=== PATIENT | female | born 1975 | race Caucasian/White ===

== ENCOUNTER → 2019-09-22 15:04 | Outpatient (ROUT) | payer OTHER, SELFPAY ==
[2019-09-22 15:21] LABS: Add Manual Diff / Slide Review NO; Basophils Absolute Auto 0 /uL (0-100); Basophils Percent Auto 0.6 % (0-2); Eosinophils Absolute Auto 100 /uL (0-450); Eosinophils Percent Auto 0.9 % (2-4); Hematocrit 40.8 % (36-46); Hemoglobin 13.6 g/dL (12.0-16.0); Lymphocytes Absolute Auto 1700 /uL (1100-4500); Lymphocytes Percent Auto 29.2 % (25-40); Mean Corpuscular HGB Conc 33.3 % (30-36); Mean Corpuscular Hemoglobin 30.8 PG (26-34); Mean Corpuscular Volume 92.6 fL (80-100); Monocytes Absolute Auto 400 /uL (0-900); Monocytes Percent Auto 7.1 % (3-14); Neutrophils Absolute Auto 3700 /uL (1500-7000); Neutrophils Percent Auto 62.2 % (50-75); Platelet Count 279 X10^3/uL (150-400); Red Cell Distribution Width 13.7 % (11.6-14.8); White Blood Cell Count 5.9 X10^3/uL (4.5-11.0)
[2019-09-22 15:33] LABS: Alanine Aminotransferase 21 IU/L (9-52); Albumin 4.3 g/dL (3.5-5.0); Albumin Globulin Ratio 1.4 (1.0-2.8); Alkaline Phosphatase 80 U/L (38-126); Aspartate Aminotransferase 23 IU/L (15-46); BUN Creatinine Ratio 18.6 (6-22); Bilirubin Total 0.4 mg/dL (0.2-1.3); Blood Urea Nitrogen 13 mg/dL (7-17); Calcium 9.7 mg/dL (8.4-10.2); Carbon Dioxide 25 mmol/L (22-32); Chloride 104 mmol/L (98-107); Cholesterol 186 mg/dL (140-199); Estimated Glomerular Filt Rate > 60.0 mL/min (>60); Glucose 82 mg/dL (70-100); HDL Cholesterol 100 mg/dL (40-60); HEMOLYSIS < 15 (0-50); LDL Cholesterol Calculated 77 mg/dL (<100); Potassium 4.4 mmol/L (3.4-5.1); Sodium 138 mmol/L (137-145); Total Protein 7.3 g/dL (6.3-8.2); Triglycerides 47 mg/dL (35-150)
== END ==
PROVIDERS: PCP Family Medicine; Visit Provider Physician Assistant
DX: R03.0 Elevated blood-pressure reading, without diagnosis of hypertension (principal); E78.2 Mixed hyperlipidemia
CPT/HCPCS: 80053; 80061; 85025

== ENCOUNTER → 2021-10-16 14:19 | Outpatient (CLI) | payer OTHER, SELFPAY ==
[2021-10-16 15:30] LABS: COVID19 -Nasal RAPID Negative (Negative)
== END ==
PROVIDERS: PCP Family Medicine; Visit Provider Obstetrics & Gynecology
DX: Z01.812 Encounter for preprocedural laboratory examination (principal); Z20.822 Contact with and (suspected) exposure to COVID-19
CPT/HCPCS: 87635

== ENCOUNTER 2021-10-17 12:34 | Day surgery (SDC) | payer OTHER, SELFPAY ==
[2021-10-10 08:27] VITALS: BMI 28.7
--- NOTE | 2021-10-17 | PATH_ITS ---
[facility] Accession Number: [id number] . 01 Material submitted: . PART A: cervix - LEEP, CUT AT 1200 PART B: endocervix - ENDOCERVICAL CURETTINGS . 02 Diagnosis: A. LEEP Cut at 12 o'clock: High-grade squamous intraepithelial lesion / YASMANY 2-3 with patchy glandular extension involves the 12-3, 6-9, and 9-12 o'clock quadrants. Low-grade squamous intraepithelial lesion / YASMANY-1 focally involves a gland in the 9-12 o'clock quadrant. High-grade squamous intraepithelial lesion / YASMANY 2-3 may focally involve the apparent inked ectocervical margin in the 12-3 o'clock quadrant; tissue disruption is obscuring. High-grade squamous intraepithelial lesion YASMANY 2-3 focally involves the apparent endocervical margin in the 6-9 o'clock quadrant. No invasive tumor identified. . B. Endocervical Curettings: Portions of lower uterine segment; negative for glandular hyperplasia, cytologic atypia or malignancy. Avulsed squames with reactive features; negative for squamous dysplasia or malignancy. Avulsed strips of glandular epithelium, possibly from endocervix; negative for dysplasia. Please see comment. V 10/22/2021 1353 Local . 02 Comment: Part B: Due to the scant nature of endocervical tissue in this biopsy, it may not be entirely field support representative of this patient's endocervix; additional sampling could be considered, if clinically appropriate. . 02 Electronically signed: . Terese Jimenez MD, Pathologist NPI- [id number] . 01 Gross description: . A. Received in formalin, labeled LEEP consists of a 3.0 x 2.0 x 0.5 cm hyde-pink smooth to granular portion of ectocervix which is cut at 12 o'clock. There is an approximate 1.0 x 0.3 cm os. The endocervical margin is inked blue. The ectocervical margin is inked black. The specimen is radially sectioned and entirely submitted. . A1: 12-3 o'clock. A2: 3-6 o'clock. A3: 6-9 o'clock. A4: 9-12 o'clock. . B. Received in formalin, labeled endocervical curettings and consists of multiple hyde-pink fragments of soft tissue admixed with clotted blood measuring 2.5 x 1.5 x 0.3 cm in aggregate. The specimen is filtered and entirely submitted in cassette B1. ([id number]) /MRV 10/18/[address] [place] [address] . 02 Pathologist provided ICD-10: N87.0, N87.1 . 02 CPT . 093440, [id number] Performed at: 01 [facility] Located within [facility] Cytology [address] [id number] MD Wally Perez MD Phone: [phone] Performed at: 02 [facility] [place] [id number] [place] [id number] MD Radha Ko MD Phone: [phone]
[2021-10-17 12:58] VITALS: BP 168/87; PULSE 85; RESP 16; TEMP 36.8; O2SAT 99; BMI 28.7
--- NOTE | 2021-10-17 13:02 | SUR.OPER ---
Lithotomy on padded OR bed, head on pillow, arms secured on padded arm boards at <90 degrees abduction. Legs secured in padded yellow fins stirrups.
[2021-10-17] MEDS: LACTATED RINGERS 1,000 ML 84 ML IV (13:20)
--- NOTE | 2021-10-17 13:26 | PM.PREOP ---
Pre-operative Note COVID-19 COVID-19 status: Negative Result date/Date tested (Pos, Neg/Pending): 10/16/21 Interval Note History & Physical reviewed/Exam performed by Physician: Yes Changes to H&P: No
--- NOTE | 2021-10-17 14:04 | P.OP_ITS ---
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 No gross cervical or endocervical lesions noted. Closure Type: not applicable Specimen(s): other (LEEP Cone, cut at 12:00m, endocervical curettings) Estimated blood loss (mL): 25 Blood products transfused: none Procedure in detail: With the patient under satisfactory general anesthesia in the modified dorsal lithotomy position, the lower abdomen and perineum were prepped and draped in the usual fashion for LEEP. A pre-surgical safety time-out was then taken in accordance with [facility] Main OR protocols. A LEEP speculum was then placed into the vaginal canal and the anterior lip of the cervix grasped with a LEEP tenaculum. Ascetic acid was used to visualize the extent of the AWE and there were no satellite lesions noted on the portio. A 20 mm x 10 mm LEEP loop was selected and using a setting of 50 w pure cut, the LEEP conization was performed in the usual manner without incident. The specimen was oriented properly and cut at 12:00 p.m.. That specimen was submitted in formalin for pathologic evaluation. An endocervical curetting was then performed with production of moderate amounts of specimen which will also be submitted as a separate pathologic specimen for evaluation. A ball electrode was then utilized to coagulate the cone base and at the end of the procedure, complete hemostasis of the LEEP site was accomplished without difficulty. The LEEP tenaculum was then removed from the cervix and there was no bleeding noted from either of those puncture sites. The LEEP speculum was then removed from the vagina. The patient was then awakened and transferred to the PACU for a period of observation and recovery having tolerated the procedure well. Estimated blood loss was less than 25 cc and no complications were experienced. Complications: none Post-operative Condition: stable Disposition: PACU Plan for aftercare: Routine postop care.
[2021-10-17 14:07] VITALS: BP 122/68; PULSE 78; RESP 10; TEMP 36.6; O2SAT 100
[2021-10-17 14:12] VITALS: BP 129/62; PULSE 76; RESP 16; O2SAT 100
[2021-10-17 14:18] VITALS: BP 135/69; PULSE 76; RESP 13; TEMP 36.4; O2SAT 100
[2021-10-17 14:22] VITALS: BP 121/76; PULSE 73; RESP 15; TEMP 36.4; O2SAT 99
[2021-10-17 14:45] VITALS: BP 146/74; PULSE 68; RESP 14; TEMP 36.7; O2SAT 100
--- NOTE | 2021-10-17 15:10 | SUR.PHASEII ---
Belly soft, tolerating po fluids, vee pad c/d/i, pt ready to go, dressed. Left unit in stable condition.
--- NOTE | 2021-10-17 15:13 | PM.GYNOP.1 ---
Operative Date/Time/Diagnoses Date of procedure: 10/17/21 Time of procedure: 14:45 Pre-op diagnosis: Request for sterilization Post-op diagnosis: same Procedure & Clinicians Procedure: Procedures Operation Date: 10/17/21 13:30 Actual Procedure Side Surgeon p DIEUDONNE Procedure Not Applicable Jeremi Villagomez MD
== END 2021-10-17 14:53 | disposition home or self-care (01) ==
PROVIDERS: PCP Physician Assistant; Referring Provider Obstetrics & Gynecology; Visit Provider Obstetrics & Gynecology
PROC: 0UBC7ZZ Excision of Cervix, Via Natural or Artificial Opening (ICD-10-PCS; CPT 57522; principal; 2021-10-17 13:30)
DX: N87.1 Moderate cervical dysplasia (principal); N87.0 Mild cervical dysplasia
CPT/HCPCS: 57522; J1100; J1885; J2250; J2405; J2704; J3010

== ENCOUNTER 2022-01-22 21:03 | Emergency (ER) | payer OTHER, SELFPAY ==
[2022-01-22 21:14] VITALS: BP 195/93; PULSE 90; RESP 16; TEMP 36.7; O2SAT 98; BMI 26.6
--- NOTE | 2022-01-22 22:06 | ED.WOUNDLAC ---
HPI - Wound/Laceration General Chief Complaint: Wound/Laceration Stated Complaint: Lt. middle finger laceration Time Seen by Provider: 01/22/22 22:00 Source: patient Mode of arrival: Ambulatory History of Present Illness HPI narrative: Patient is a 46-year-old female who presents with left middle finger laceration. She was chopping mushroom when she cut her finger. She is not any antiplatelet or anticoagulation medication. Unsure when her last tetanus was bleeding has not stopped Related Data Home Medications Medication Instructions Recorded Confirmed No Known Home Medications 10/17/21 10/17/21 Allergies Allergy/AdvReac Type Severity Reaction Status Date / Time No Known Allergies Allergy Uncoded 01/22/22 21:17 Review of Systems Review of Systems Narrative: GENERAL: Denies chills,fever HEENT: Denies throat pain RESPIRATORY: Denies dyspnea, cough, wheezing CARDIOVASCULAR: Denies chest pain, palpitations GASTROINTESTINAL: Denies nausea, vomiting MUSCULOSKELETAL: Denies extremity pain, injury SKIN: See HPI NEUROLOGIC: Denies weakness, dizziness, headache, numbness 8 point review of systems is negative except for those stated above and HPI Patient History Medical History (Updated 01/22/22 @ 23:09 by Odilia Harvey DO) Eczema Surgical History (Updated 09/05/21 @ 20:49 by Virginia Jacinto) Anesthesia History of abdominoplasty (~2011) History of breast augmentation (~2011) Social History Smoking Status: Never smoker Smoking Status: Never smoker Substance Use Type: does not use Exam Initial Vital Signs Initial Vital Signs: Vital Signs Temperature 98.0 F 01/22/22 21:14 Pulse Rate 90 01/22/22 21:14 Respiratory Rate 16 01/22/22 21:14 Blood Pressure 195/93 H 01/22/22 21:14 Pulse Oximetry 98 01/22/22 21:14 GENERAL: Well-appearing, pleasant 46-year-old female no acute distress CARDIOVASCULAR: peripheral pulses in tact, cap refill <2 sec RESPIRATORY: No respiratory distress, speaks in full sentences without difficulty EXTREMITIES: Normal range of motion, no clubbing or edema. Neurovascularly intact NEUROLOGICAL: Cranial nerves II through XII grossly intact. Normal gait and speech. SKIN: Warm, dry, no petechiae, no rashes or lesions. See diagram Skin Fingers- Fingertip Back: 1. Through the nail bed Procedures Laceration Repair Laceration 1: Size (cm): 2 Description: linear and other (nailbed) Depth: simple, single layer Local Anesthetic: lidocaine 1% Amount of anesthesia used (mL): 4 Pre-repair: wound explored, irrigated extensively and deep structures intact Skin layer closed with: other (chromic gut) Size (cm): 5-0 Number of sutures: 2 Nerve Block Nerve Block 1: Local Anesthetic: lidocaine 1% Amount of anesthesia used (mL): 4 Side: left Nerve Blocks: digital Course Orders Ordered: Discontinued Medications Diphtheria/Tetanus/Acell Pertussis (Tet,Diph,Pertuss(Acell),Vac/Pf 0.5 Ml Syringe) 0.5 ml IM .ONCE ONE Stop: 01/22/22 23:03 Last Admin: 01/22/22 23:08 Dose: 0.5 ml Documented by: BUBBA Lidocaine HCl (Lidocaine 1% (Pf) 5 Ml) 4 ml SUBCUT NOW ONE Stop: 01/22/22 22:13 Last Admin: 01/22/22 23:04 Dose: 4 ml Documented by: BUBBA Vital Signs Vital signs: Vital Signs - 8 hr 01/22/22 21:14 01/22/22 23:18 Temperature 98.0 F Pulse Rate 90 87 Respiratory Rate 16 18 Blood Pressure 195/93 H 165/86 H Pulse Oximetry 98 100 MDM - Wound/Laceration MDM Narrative Medical decision making narrative: Nail removed, nail bed repaired. Discharge Plan Departure Patient Disposition: Home Clinical Impression: Laceration of left index finger w/o foreign body with damage to nail Activity Restrictions/Additional Instructions: *You have been diagnosed with left index finger nail bed laceration *What to do: Great to see you! Sorry under the circumstances. Sutures should dissolve and about 1-2 weeks. Keep area clean and dry with soap and water. May bathe, however no soaking recommend no dishes :) May change bandage tomorrow. Anticipate that the nail grows back as usual over the next few months. *Continue to take medications as directed Ibuprofen 800 mg every 8 hours as needed for vsgg-cm-gbpdbqok pain Tylenol 1000 mg every 6 hours if needed for ctiv-ec-maepfgzj pain *Follow up with your primary care provider in 2-3 days or call [phone] *Return to ER if you should have redness drainage, numbness tingling or any new, worsening or concerning symptoms Prescriptions: No Action No Known Home Medications 0RF Referrals: Jacy Santana PA-C [Primary Care Provider] -
[2022-01-22] MEDS: LIDOCAINE 1% (PF) 5 ML 4 ML SUBCUT (23:04)
[2022-01-22] MEDS: TET,DIPH,PERTUSS(ACELL),VAC/PF 0.5 ML SYRINGE IM (23:08)
[2022-01-22 23:18] VITALS: BP 165/86; PULSE 87; RESP 18; O2SAT 100
== END 2022-01-22 23:20 | disposition home or self-care (01) ==
PROVIDERS: Emergency Provider Emergency Medicine; PCP Physician Assistant
DX: S61.311A Laceration without foreign body of left index finger with damage to nail, initial encounter (principal); W26.9XXA Contact with unspecified sharp object(s), initial encounter; Z23 Encounter for immunization
CPT/HCPCS: 12001; 90471; 99283; 90715